=== PATIENT | male | born 1935 | race Native Hawaiian/Other Pacific Islander ===

== ENCOUNTER 2017-04-29 08:08 | Outpatient (CLI) | payer OTHER | END 2017-04-29 09:10 | disposition home or self-care (01) | LOC: LABW 08:08 | PROVIDERS: Nurse Practitioner Adult Health | DX: E78.2 Mixed hyperlipidemia (principal); Z79.899 Other long term (current) drug therapy; Z51.81 Encounter for therapeutic drug level monitoring | CPT/HCPCS: 36415; 80061; 80076 ==

== ENCOUNTER 2017-05-17 09:25 | Outpatient (CLI) | payer OTHER | END 2017-05-17 10:25 | disposition home or self-care (01) | LOC: RAD 09:25 | DX: R05 Cough (principal) ==

== ENCOUNTER 2017-11-16 07:39 | Outpatient (CLI) | payer OTHER | END 2017-11-16 20:51 | disposition home or self-care (01) | LOC: LABW 07:39 | PROVIDERS: Nurse Practitioner Adult Health | DX: E78.2 Mixed hyperlipidemia (principal); Z79.899 Other long term (current) drug therapy; Z51.81 Encounter for therapeutic drug level monitoring | CPT/HCPCS: 36415; 80061; 80076 ==

== ENCOUNTER 2018-05-22 07:58 | Outpatient (CLI) | payer OTHER | END 2018-05-22 19:50 | disposition home or self-care (01) | LOC: LABW 07:58 | PROVIDERS: Nurse Practitioner Adult Health | DX: E78.2 Mixed hyperlipidemia (principal); Z79.899 Other long term (current) drug therapy | CPT/HCPCS: 36415; 80061; 80076 ==

== ENCOUNTER 2018-07-03 10:02 | Outpatient (CLI) | payer OTHER | END 2018-07-03 20:31 | disposition home or self-care (01) | LOC: RESP 10:02 | DX: I48.0 Paroxysmal atrial fibrillation (principal) | CPT/HCPCS: 93225 ==

== ENCOUNTER 2018-08-28 20:52 | Emergency (ER) | payer OTHER ==
[~2018-08-28] VITALS: Ht 162.6 cm; Wt 65.8 kg
[2018-08-28] MEDS ORDERED: METF100038 PO (21:10)
[2018-08-28] MEDS ORDERED: PRINIVIL5 MG PO (21:10)
[2018-08-28] MEDS ORDERED: DIGO0.2549 PO (21:11)
[2018-08-28] MEDS ORDERED: METO-837 PO (21:12)
[2018-08-28] MEDS ORDERED: CLOP75TA2 PO (21:12)
[2018-08-28] MEDS ORDERED: ASPI-93 PO (21:13)
[2018-08-28] MEDS ORDERED: MULTIVITAMIN ME1 TA1 PO (21:13)
[2018-08-28] MEDS ORDERED: LIPITOR20 MG PO (21:14)
[2018-08-28 21:35] LABS: PLATELET COUNT 395 K/uL (142-355)
[2018-08-28 21:40] LABS: POTASSIUM 4.7 mmol/L (3.6-5.2)
[2018-08-28 23:13] VITALS: BP 101/57; TEMP 97.9
== END 2018-08-28 23:13 | disposition home or self-care (01) ==
LOC: ED 20:52
PROVIDERS: Internal Medicine
DX: I48.91 Unspecified atrial fibrillation (principal); R07.89 Other chest pain; R10.13 Epigastric pain
CPT/HCPCS: 36415; 80053; 81000; 82550; 84484; 85027; 93005; 99283

== ENCOUNTER 2018-09-12 08:19 | Outpatient (CLI) | payer OTHER ==
[~2018-09-12] VITALS: Ht 162.6 cm; Wt 69.9 kg
[~2018-09-12 08:19] MED LIST: ASPI-93 PO; CLOP75TA2 PO; DIGO0.2549 PO; LIPITOR20 MG PO; METF100038 PO; METO-837 PO; MULTIVITAMIN ME1 TA1 PO; PRINIVIL5 MG PO
== END 2018-09-12 19:11 | disposition home or self-care (01) ==
LOC: NM 08:19
DX: I25.10 Atherosclerotic heart disease of native coronary artery without angina pectoris (principal); R07.89 Other chest pain
CPT/HCPCS: A9500; J2785

== ENCOUNTER 2018-11-15 07:57 | Outpatient (CLI) | payer OTHER | END 2018-11-15 23:43 | disposition home or self-care (01) | LOC: LABW 07:57 | PROVIDERS: Nurse Practitioner Adult Health | DX: E78.2 Mixed hyperlipidemia (principal); Z79.899 Other long term (current) drug therapy | CPT/HCPCS: 36415; 80061; 80076 ==

== ENCOUNTER 2019-01-15 09:45 | Outpatient (CLI) | payer OTHER ==
[2019-01-15 10:08] LABS: POTASSIUM 4.6 mmol/L (3.6-5.2)
[2019-01-15 10:32] LABS: PLATELET COUNT 198 K/uL (142-355)
== END 2019-01-15 19:36 | disposition home or self-care (01) ==
LOC: LABW 09:45
PROVIDERS: Specialist
DX: Z01.810 Encounter for preprocedural cardiovascular examination (principal); R93.1 Abnormal findings on diagnostic imaging of heart and coronary circulation
CPT/HCPCS: 36415; 80053; 85027

== ENCOUNTER 2019-03-14 18:59 | Emergency (ER) | payer OTHER ==
[~2019-03-14] VITALS: Ht 162.6 cm; Wt 69.9 kg
[2019-03-14 19:50] LABS: PLATELET COUNT 347 K/uL (142-355)
[2019-03-14 20:04] LABS: POTASSIUM 4.5 mmol/L (3.6-5.2)
[2019-03-14 20:46] VITALS: BP 134/74; TEMP 100
== END 2019-03-14 20:50 | disposition home or self-care (01) ==
LOC: ED 18:59
PROVIDERS: Emergency Medicine
DX: J06.9 Acute upper respiratory infection, unspecified (principal); J40 Bronchitis, not specified as acute or chronic; R00.0 Tachycardia, unspecified
CPT/HCPCS: 80053; 85027; 87502; 87651; 93005; 94664; 99283

== ENCOUNTER 2019-05-15 10:10 | Outpatient (CLI) | payer OTHER ==
[2019-05-15] MEDS ORDERED: OMEP20CA PO (10:40)
[2019-05-15] MEDS ORDERED: ASPIR-8181 MG PO (10:41)
== END 2019-05-15 10:21 | disposition short-term general hospital (02) ==
LOC: AMB 10:10
DX: R42 Dizziness and giddiness (principal); R06.02 Shortness of breath; R55 Syncope and collapse
CPT/HCPCS: A0425; A0427

== ENCOUNTER 2019-05-15 10:22 | Emergency (ER) | payer OTHER ==
[~2019-05-15] VITALS: Ht 162.6 cm; Wt 67.1 kg
[2019-05-15] MEDS ORDERED: OMEP20CA PO (10:40)
[2019-05-15] MEDS ORDERED: ASPIR-8181 MG PO (10:41)
[2019-05-15 10:55] LABS: PLATELET COUNT 358 K/uL (142-355)
[2019-05-15 11:05] LABS: POTASSIUM 4.3 mmol/L (3.6-5.2); SODIUM 137 mmol/L (136-145)
[2019-05-15 12:55] VITALS: BP 129/64; TEMP 97.6
== END 2019-05-15 12:55 | disposition home or self-care (01) ==
LOC: ED 10:22
PROVIDERS: Family Medicine
DX: R06.09 Other forms of dyspnea (principal); I48.92 Unspecified atrial flutter; R42 Dizziness and giddiness
CPT/HCPCS: 80053; 82550; 84484; 85027; 93005; 99284

== ENCOUNTER 2019-05-22 11:52 | Outpatient (CLI) | payer OTHER ==
[~2019-05-22 11:52] MED LIST changes: +ASPIR-8181 MG PO; +OMEP20CA PO
== END 2019-05-22 19:02 | disposition home or self-care (01) ==
LOC: LABW 11:52 → RESP 11:52
DX: I48.0 Paroxysmal atrial fibrillation (principal); R06.02 Shortness of breath; R53.83 Other fatigue
CPT/HCPCS: 36415; 36600; 82565; 82805; 84520; Q9963

== ENCOUNTER 2019-05-23 15:20 | Outpatient (CLI) | payer OTHER ==
[2019-05-23 15:40] LABS: PLATELET COUNT 311 K/uL (142-355)
[2019-05-23 15:48] LABS: POTASSIUM 4.2 mmol/L (3.6-5.2)
== END 2019-05-23 23:33 | disposition home or self-care (01) ==
LOC: LABW 15:20
PROVIDERS: Registered Nurse
DX: K76.89 Other specified diseases of liver (principal); E78.2 Mixed hyperlipidemia
CPT/HCPCS: 36415; 80053; 80074; 82105; 85027

== ENCOUNTER 2019-05-31 07:52 | Outpatient (CLI) | payer OTHER | END 2019-05-31 20:30 | disposition home or self-care (01) | LOC: LABW 07:52 | DX: I25.10 Atherosclerotic heart disease of native coronary artery without angina pectoris (principal); E78.2 Mixed hyperlipidemia; Z79.899 Other long term (current) drug therapy | CPT/HCPCS: 36415; 80061; 80076 ==

== ENCOUNTER 2019-06-08 13:59 | Outpatient (CLI) | payer OTHER | END 2019-06-08 22:18 | disposition home or self-care (01) | LOC: RESP 13:59 | DX: R06.02 Shortness of breath (principal) ==

== ENCOUNTER 2020-07-25 19:47 | Observation (INO) | payer OTHER ==
[2020-07-25] VITALS (10 sets, daily range): BP systolic 85–112; BP diastolic 37–58; TEMP 97.8–98.6
[~2020-07-25] VITALS: Ht 162.6 cm; Wt 70.6 kg
[2020-07-25 20:22] LABS: PLATELET COUNT 244 K/uL (142-355)
[2020-07-25 20:35] LABS: SODIUM 133 mmol/L (136-145)
[2020-07-25 20:42] LABS: PARTIAL THROMBOPLASTIN TIME 25.2 SECONDS (24.5-33.6)
[2020-07-26 04:00] VITALS: BP 115/54; TEMP 98.6
[2020-07-26 04:32] VITALS: BP 106/51; TEMP 97.8; Ht 162.6 cm; Wt 70.6 kg
[2020-07-26] MEDS ORDERED: DOCU100C10 PO (05:07)
[2020-07-26] MEDS ORDERED: PRESERVISION PO (05:08)
[2020-07-26 05:14] LABS: PLATELET COUNT 243 K/uL (142-355)
[2020-07-26 05:33] LABS: POTASSIUM 4.8 mmol/L (3.6-5.2)
[2020-07-26 08:00] VITALS: BP 132/60; TEMP 100.2
[2020-07-26 12:00] VITALS: BP 107/53; TEMP 98.7
[2020-07-26 16:00] VITALS: BP 1554/81; TEMP 99.2
[2020-07-26 20:00] VITALS: BP 144/69; TEMP 99.9
[2020-07-27] VITALS: BP 95/49; TEMP 98.6
[2020-07-27 04:00] VITALS: BP 117/65; TEMP 100
[2020-07-27 06:30] LABS: PLATELET COUNT 199 K/uL (142-355)
[2020-07-27 06:50] LABS: POTASSIUM 3.4 mmol/L (3.6-5.2)
[2020-07-27 08:00] VITALS: BP 127/65; TEMP 98.7
[2020-07-27 12:00] VITALS: BP 163/73; TEMP 98.8
[2020-07-27 14:47] LABS: PLATELET COUNT 223 K/uL (142-355)
[2020-07-27] MEDS ORDERED: LEVAQUIN250 MG PO (16:25)
== END 2020-07-27 17:00 | disposition home or self-care (01) ==
LOC: ED 19:47 → MED/SURG 21:00
PROVIDERS: Hospitalist
DX: N39.0 Urinary tract infection, site not specified (principal); E86.0 Dehydration; R53.1 Weakness; R74.02 Elevation of levels of lactic acid dehydrogenase [LDH]; D50.8 Other iron deficiency anemias; I25.10 Atherosclerotic heart disease of native coronary artery without angina pectoris; E78.49 Other hyperlipidemia; J44.9 Chronic obstructive pulmonary disease, unspecified; F03.90 Unspecified dementia, unspecified severity, without behavioral disturbance, psychotic disturbance, mood disturbance, and anxiety; E11.9 Type 2 diabetes mellitus without complications; R50.9 Fever, unspecified
CPT/HCPCS: 36415; 80053; 80162; 81000; 82272; 82550; 83605; 83880; 84484; 85027; 85610; 85730; 87040; 87077; 87086; 87088; 87186; 87205; 87502; 87635; 87651; 93005; 96360; 96361; 96365; 96366; 96367; 96372; 96375; 99220; 99284; J1956; G0378; J1650; J2405; J3490; U0003

== ENCOUNTER 2020-08-07 00:12 | Emergency (ER) | payer OTHER ==
[~2020-08-07] VITALS: Ht 162.6 cm; Wt 68.0 kg
[~2020-08-07 00:12] MED LIST changes: +DOCU100C10 PO; +LEVAQUIN250 MG PO; +PRESERVISION PO
[2020-08-07 02:15] VITALS: BP 159/69; TEMP 97.9
== END 2020-08-07 02:15 | disposition home or self-care (01) ==
LOC: ED 00:12
DX: L72.8 Other follicular cysts of the skin and subcutaneous tissue (principal); Z48.01 Encounter for change or removal of surgical wound dressing
CPT/HCPCS: 80048; 85027; 85610; 85730; 96360; 96361; 96365; 99283; 99284; J3370; J7040

== ENCOUNTER 2020-08-07 05:03 | Emergency (ER) | payer OTHER ==
[~2020-08-07] VITALS: Ht 162.6 cm; Wt 68.0 kg
[2020-08-07 05:14] VITALS: BP 119/58; TEMP 97.9
[2020-08-07 05:43] LABS: PLATELET COUNT 564 K/uL (142-355)
[2020-08-07 05:49] LABS: POTASSIUM 5.3 mmol/L (3.6-5.2)
[2020-08-07 06:31] LABS: PARTIAL THROMBOPLASTIN TIME 26.5 SECONDS (24.5-33.6)
== END 2020-08-07 07:44 | disposition home or self-care (01) ==
LOC: ED 05:03
PROVIDERS: Hospitalist
PROC: 0HQ7XZZ Repair Abdomen Skin, External Approach (ICD-10-PCS; principal; 2020-08-07)
DX: Z48.01 Encounter for change or removal of surgical wound dressing (principal)
CPT/HCPCS: 80048; 85027; 85610; 85730; 96360; 96361; 96365; 99284; J3370; J7040

== ENCOUNTER 2020-09-08 07:41 | Outpatient (CLI) | payer OTHER | END 2020-09-08 19:14 | disposition home or self-care (01) | LOC: LABW 07:41 | PROVIDERS: ATTEND Nurse Practitioner | DX: E78.49 Other hyperlipidemia (principal); Z09 Encounter for follow-up examination after completed treatment for conditions other than malignant neoplasm; Z79.899 Other long term (current) drug therapy | CPT/HCPCS: 36415; 80061; 80076; 80162 ==

== ENCOUNTER 2021-01-26 13:59 | Outpatient (CLI) | payer OTHER ==
[2021-02-04 14:48] LABS: PLATELET COUNT 300 K/uL (142-355)
[2021-02-04 14:49] LABS: POTASSIUM 4.8 mmol/L (3.6-5.2)
== END 2021-01-26 17:00 | disposition home or self-care (01) ==
LOC: LABW 13:59
PROVIDERS: ATTEND Nurse Practitioner Family
DX: D64.9 Anemia, unspecified (principal); M62.81 Muscle weakness (generalized); R23.1 Pallor
CPT/HCPCS: 36415; 80053; 83540; 85027

== ENCOUNTER 2021-02-15 10:06 | Inpatient (IN) | payer OTHER ==
[2021-02-15] VITALS (7 sets, daily range): BP systolic 97–146; BP diastolic 55–75; TEMP 97.4–99.6; Ht 162.6 cm; Wt 61.5 kg
[~2021-02-15] VITALS: Ht 162.6 cm; Wt 61.5 kg
[2021-02-15 10:55] LABS: PLATELET COUNT 349 K/uL (142-355)
[2021-02-15 11:10] LABS: PARTIAL THROMBOPLASTIN TIME 26.1 SECONDS (24.5-33.6)
[2021-02-15 11:23] LABS: POTASSIUM 5.4 mmol/L (3.6-5.2); SODIUM 137 mmol/L (136-145)
[2021-02-16] VITALS: BP 91/58; TEMP 98.4
[2021-02-16 03:58] LABS: PLATELET COUNT 249 K/uL (142-355)
[2021-02-16 04:00] VITALS: BP 106/60; TEMP 98.1
[2021-02-16 04:26] LABS: POTASSIUM 3.8 mmol/L (3.6-5.2)
[2021-02-16 08:00] VITALS: BP 117/65; TEMP 97.6
[2021-02-16] MEDS ORDERED: GLIM4TAB PO (11:00)
[2021-02-16] MEDS ORDERED: OZEMPIC2 MG/1.5 M SC (11:01)
[2021-02-16 12:00] VITALS: BP 108/61; TEMP 98
[2021-02-16 16:00] VITALS: BP 99/55; TEMP 97.7
== END 2021-02-16 17:00 | disposition home or self-care (01) | DRG 639 ==
LOC: ED 10:06 → MED/SURG 11:30
PROVIDERS: Hospitalist; ADMIT Internal Medicine Endocrinology, Diabetes & Metabolism; ATTEND Internal Medicine Endocrinology, Diabetes & Metabolism
DX: E11.649 Type 2 diabetes mellitus with hypoglycemia without coma (principal); I25.10 Atherosclerotic heart disease of native coronary artery without angina pectoris; E78.49 Other hyperlipidemia; J44.9 Chronic obstructive pulmonary disease, unspecified; M15.8 Other polyosteoarthritis; R53.1 Weakness; I48.91 Unspecified atrial fibrillation; F03.90 Unspecified dementia, unspecified severity, without behavioral disturbance, psychotic disturbance, mood disturbance, and anxiety; I10 Essential (primary) hypertension
CPT/HCPCS: 36415; 80053; 80162; 80320; 81000; 82550; 82947; 82948; 83605; 83880; 84484; 85008; 85027; 85610; 85730; 87040; 87635; 93005; 96360; 96375; 99284; J1650; J1815; J1940; J3490; J7060; U0003